=== PATIENT | female | born 1955 | race Hispanic/Latino ===

== ENCOUNTER → 2024-10-31 | Day surgery (SDC) | payer MEDICARE ==
[~2024-10-31] MED LIST: ACETAMINOPHEN 1000 MG/100 ML 100 ML IV ONE; ACETAMINOPHEN 1000 MG/100 ML IV PRN; ALENDRONATE SOD70 MG PO; ASPIRIN 325 MG TAB PO SCH; BUPIVACAINE/EPI 0.5% 30ML SDV-MPF INJ ONE; CELECOXIB 100 MG CAP PO SCH; DEXAMETHASONE SOD PHOS INJ 4 MG/ML SDV ONE; DIPHENHYDRAMINE HCL INJ 50 MG/ML VIAL IV PRN; DOCUSATE SODIUM 100 MG CAP PO PRN; EPHEDRINE SULFATE INJ 50 MG/ML VIAL ONE; FENTANYL CITRATE/PF 100MCG/2 ML INJ ONE; HYDROCODONE/APAP 5MG-325MG TAB PO PRN; HYDROCODONE/APAP 7.5MG-325MG 1 EA TAB PO PRN; IRBESARTAN150 MG PO; LIDOCAINE HCL 2% LOCAL INJ 5 ML SDV VIAL INJ ONE; LIPITOR10 MG PO; MELOXICAM7.5 MG PO; METFORMIN HCL500 MG PO; MIDAZOLAM HCL 2 MG/2 ML VIAL ONE; ONDANSETRON HCL INJ 2MG/ML 2ML 2 MG/ML VIAL IV PRN; ONDANSETRON HCL INJ 2MG/ML 2ML 2 MG/ML VIAL ONE; PROPOFOL IV EMULSION 10 MG/ML 20 ML VIAL ONE; ROPIVACAINE/EPI/CLONIDINE/KET 50 ML SYRINGE INJ ONE; SEVOFLURANE INHAL SOLN 250 ML PEN BTL ONE; SODIUM CHLORIDE 0.9% 1000ML 1,000 ML IV SCH
[2024-10-31] MEDS: GABAPENTIN 300 MG CAP ONE (07:55)
[2024-10-31] MEDS: CELECOXIB 200 MG CAP ONE (07:55)
[2024-10-31] MEDS: DEXAMETHASONE SOD PHOS 10 MG/1 ML VIAL ONE (07:55)
[2024-10-31] MEDS: CEFAZOLIN SODIUM 2 GM ONE (07:56)
[2024-10-31] MEDS: LACTATED RINGER'S 1,000 ML ONE (07:56)
[2024-10-31 09:50] VITALS: TEMP 97.2
[2024-10-31 11:05] VITALS: BP 109/56; PULSE 77; RESP 18; O2SAT 98
== END | disposition home health service (06) ==
LOC: OR 07:01
PROVIDERS: ATTEND Specialist
DX: M17.12 Unilateral primary osteoarthritis, left knee (principal); D64.9 Anemia, unspecified; E11.9 Type 2 diabetes mellitus without complications; I10 Essential (primary) hypertension; E78.5 Hyperlipidemia, unspecified; K21.9 Gastro-esophageal reflux disease without esophagitis; Z01.812 Encounter for preprocedural laboratory examination; Z01.818 Encounter for other preprocedural examination; Z79.1 Long term (current) use of non-steroidal anti-inflammatories (NSAID); Z79.84 Long term (current) use of oral hypoglycemic drugs; Z79.899 Other long term (current) drug therapy; Z68.33 Body mass index [BMI] 33.0-33.9, adult
CPT/HCPCS: 27447; 71046; 73560; 86850; 86900; 97110; 97116; 97161; 97530; C1713 ×2; C1776 ×3; J0131; J1100 ×2; J2003; J2250; J2405; J2704; J3010; J7121